=== PATIENT | female | born 1980 | race Two or more races ===

== ENCOUNTER 2019-01-31 07:17 | Inpatient (IN) | payer OTHER ==
[~2019-01-31] VITALS: Ht 149.9 cm; Wt 101.6 kg
[2019-01-31] VITALS (12 sets, daily range): BP systolic 109–145; BP diastolic 58–83
[~2019-01-31 07:17] MED LIST: NKM; ceFAZolin sod 2 GM in D5W 110 ML IVPB SCH
[2019-01-31] MEDS ORDERED: Propofol 200mg/20ml IV ONE ×2 (08:35→10:19)
[2019-01-31] MEDS ORDERED: Lidocaine 1% MPF 10mg/ml 5ml ONE (08:35)
[2019-01-31] MEDS ORDERED: Midazolam 2mg/2ml Inj ONE (08:35)
[2019-01-31] MEDS ORDERED: fentaNYL 100 mcg/2 mL IV ONE (08:35)
--- NOTE | 2019-01-31 08:59 | Anethesia Preoperative Eval ---
Anesthesia Pre-op PMH/ROS General Date of Evaluation: Jan 31, 2019 Time of Evaluation: 08:57 Anesthesiologist: Jasmin Madison CRNA ASA Score: ASA 2 Mallampati Score Class I : Soft palate, uvula, fauces, pillars visible Class II: Soft palate, uvula, fauces visible Class III: Soft palate, base of uvula visible Class IV: Only hard plate visible Mallampati Classification: Class II Surgeon: John Diagnosis: Herniated nucleus pulposus, radiculopathy Surgical Procedure: Microdiscectomy L4-L5 Anesthesia History: none Family History: no anesthesia problems Allergies: Coded Allergies: No Known Allergies (Unverified , 01/31/19) Patient NPO?: Yes NPO Date: Jan 30, 2019 NPO Time: 2100 Past Medical History Cardiovascular: Denies: HTN, CAD, [place], valve dz, arrhythmia, other Pulmonary: Reports: other - snoring at night, denies ABY; Denies: asthma, COPD, ABY Gastrointestinal/Genitourinary: Denies: GERD, CRI, ESRD, other Neurologic/Psychiatric: Reports: other - migraines; Denies: dementia, CVA, depression/anxiety, TIA Endocrine: Denies: DM, hypothyroidism, steroids, other HEENT: Denies: cataract (L), cataract (R), glaucoma, [place] (L), [place] (R), other Hematology/Immune: Denies: anemia, DVT, bleeding disorder, other Musculoskeletal/Integumentary: Reports: other - herniated nucleus pulposis, radisculopathy, LEFT leg weakness and numbness; Denies: OA, RA, DJD, DDD, edema Other: obesity - Morbid obesity, BMI 45 Anesthesia Pre-op Phys. Exam Physician Exam Last Vital Signs Date Time Temp Pulse Resp B/P (MAP) Pulse Ox O2 Delivery O2 Flow Rate FiO2 01/31/19 07:58 Room Air 01/31/19 07:56 98.0 85 18 128/73 (91) 97 Constitutional: NAD Neurologic: CN 2-12 intact Cardiovascular: RRR, no M/R/G Respiratory: CTA Gastrointestinal: S/NT/ND Airway Exam Mallampati Score: Class II MO: full Neck: FROM TMD: > #FB ROM: full Teeth: intact Dentures: no upper, no lower Anesthesia Pre-op A/P Labs reviewed, see chart Urine Test Test 3/8/19 07:30 Urine HCG, Qualitative Negative (NEGATIVE) Studies Pre-op Studies: EKG - Sinus rhythm, CXR - no acute cardiopulmonary disease, PFTS - WNL Risk Assessment & Plan Assessment: ASA 2, ok to proceed Plan: GETA Status Change Before Surgery: No Pre-Antibiotics Drug: Jasmin Soriano CRNA Jan 31, 2019 08:58
[2019-01-31] MEDS ORDERED: Thrombin 5000 units TOPIC ONE (09:21)
[2019-01-31] MEDS ORDERED: Vancomycin 1gm vial IVPB ONE (09:21)
[2019-01-31] MEDS ORDERED: Bacitracin 50000 Units Vial ONE (09:22)
[2019-01-31] MEDS ORDERED: Gelfoam Size TOPIC ONE (09:22)
[2019-01-31] MEDS ORDERED: Bupivacaine w/Epi 0.5% 30ml Vial INJ ONE (09:23)
[2019-01-31] MEDS ORDERED: Zemuron 50mg/5ml Inj IV ONE (09:54)
[2019-01-31] MEDS ORDERED: Propofol 1,000mg/ 100ml btl IV ONE (10:30)
[2019-01-31] MEDS ORDERED: NS Irrig 1000ml ONE (10:30)
[2019-01-31] MEDS ORDERED: Sterile Water Irrig 1000ml IRRIG ONE (10:30)
[2019-01-31] MEDS ORDERED: LR 1000ml ONE (10:30)
--- NOTE | 2019-01-31 10:37 | Pre-Procedure Note/Attestation ---
Pre-Procedure Note/Attestation Complete Prior to Procedure Planned Procedure: left Procedure Narrative: Lumbar 45 microdiscectomy (based on radiology report L5S1) Indications for Procedure Pre-Operative Diagnosis: Lumbar 45 hnp hiz tear (based on radiology report L5S1), I refer to it as L45 because there is an additional mobile L5S1 disc I note in the MRI Attestation I attest that I discussed the nature of the procedure; its benefits; risks and complications; and alternatives (and the risks and benefits of such alternatives ), prior to the procedure, with the patient (or the patient's legal senior account representative). I attest that, if there was a reasonable possibility of needing a blood transfusion, the patient (or the patient's legal senior account representative) was given the [place] [employer] [facility] standardized written summary, pursuant to the [place] Blood Safety Act ([place] Health and Safety Code # 1645, as amended). I attest that I re-evaluated the patient just prior to the surgery and that there has been no change in the patient's H&P, except as documented below: Isauro Lopez MD Jan 31, 2019 10:37
--- NOTE | 2019-01-31 10:38 | Brief Operative Note ---
Immediate Post Operative Note Operative Note Chief Complaint: lumbar back pain and radiculopathy Pre-op Diagnosis: Lumbar 45 hnp hiz tear (based on radiology report L5S1), I refer to it as L45 because there is an additional mobile L5S1 disc I note in the MRI Procedure: Lumbar 45 microdiscectomy (based on radiology report L5S1) Post-op Diagnosis: same as pre-op Findings: consistent w/pre-op dx studies Surgeon: John [employer] Instrument [employer] Tool Maker: Rhea Anesthesia: general Specimen: none Complications: none Condition: stable Fluids: IVF Estimated Blood Loss: minimal Drains: none Implant(s) used?: No Isauro Lopez MD Jan 31, 2019 10:38
[2019-01-31] MEDS ORDERED: Lidocaine 1% Plain 30 ml INJ ONE (10:39)
[2019-01-31] MEDS ORDERED: HYDROcodone/Acetamin 5/325 tab ORAL PRN (10:45)
[2019-01-31] MEDS ORDERED: HYDROcodone/Acetamin 7.5/325 tab ORAL PRN ×2 (10:45)
[2019-01-31] MEDS ORDERED: Metoclopramide 10mg/2ml Inj IVP PRN ×2 (10:45→12:00)
[2019-01-31] MEDS ORDERED: Chloraseptic Spray 20mL Bottle ORAL PRN (10:45)
[2019-01-31] MEDS ORDERED: Morphine Sulfate 2mg/ml Inj(IV/IM USE ONLY) IV PRN (10:45)
[2019-01-31] MEDS ORDERED: Milk of Magnesia 30ml Ud ORAL PRN (10:45)
[2019-01-31] MEDS ORDERED: Naloxone 0.4mg/ml Inj IVP PRN (10:45)
[2019-01-31] MEDS ORDERED: Morphine Sulfate 4mg/ml Inj (IV USE ONLY) IV PRN ×2 (10:45)
[2019-01-31] MEDS ORDERED: HYDROmorphone 1mg/ml Carpuject IVP PRN (10:45)
[2019-01-31] MEDS ORDERED: Morphine Sulfate 10mg/ml Inj ONE (11:24)
[2019-01-31] MEDS ORDERED: Ropivacaine 5mg/ml Vial 30ml INJ ONE ×2 (11:27→11:48)
[2019-01-31] MEDS ORDERED: Neostigmine 1mg/ml 10ml Inj ONE (11:50)
[2019-01-31] MEDS ORDERED: Glycopyrrolate 0.2mg/ml 1ml Vial ONE (11:50)
[2019-01-31] MEDS ORDERED: Ketorolac 30mg Inj IV PRN (12:00)
[2019-01-31] MEDS ORDERED: Hydromorphone 0.5mg/0.5ml inj IVP PRN (12:00)
--- NOTE | 2019-01-31 13:03 | Immediate Post-Op Evaluation ---
Immediate Post-Op Evalulation Immediate Post-Op Evalulation Procedure: Microdiscectomy L4-L5 Date of Evaluation: Jan 31, 2019 Time of Evaluation: 12:52 IV Fluids: LR 1200ml Estimated Blood Loss: 50 ml Blood Pressure Systolic: 145 Blood Pressure Diastolic: 83 Pulse Rate: 91 Respiratory Rate: 16 O2 Sat by Pulse Oximetry: 99 Temperature (Fahrenheit): 98.8 Pain Score (1-10): 2 Nausea: No Vomiting: No Complications none Patient Status: awake, reacts, patent, extubated Hydration Status: adequate Drug: cefazolin 2000mg IV Given Within 1 Hr of Incision: Yes Time Given: 10:45 Jasmin Madison CRNA Jan 31, 2019 13:03
--- NOTE | 2019-01-31 13:29 | NUR ---
CASE MANAGEMENT:REVIEW 38 YR OLD FEMALE HERE FOR ELECTIVE SURGERY SI: LUMBAR BACK PAIN AND RADICULOPATHY 98.0 85 18 128/73 97% ON RA IS: TO SURGERY FOR: LUMBAR MICRODISCECTOMY IV ANCEF Q8HRS IV DECADRON Q6HRS IVF@100/HR : MED/SURG STATUS 3 EAST INTERQUAL CRITERIA MET
--- NOTE | 2019-01-31 15:30 | NUR ---
NURSE NOTES: Pt received in stable condition s/p procedure to lumbar region. Site closed with dermabound. Pt has sensation in all extremities,lung fabian clear, bowel sounds present. Bladder nondistended soft to palpation. Neuro check rendered. Answering questions appropriately. Able to to follow commands . Bilateral hand log tumbler are firm, lower extremities with left foot, strength 4/5, and rt foot 5/5. All lower extremity pulses palpable, and normal. No presence of edema to lower extremities. Informed of safety precautions in regards to toileting. Call light is in reach
--- NOTE | 2019-01-31 16:31 | 48 Hour Post Anesthesia Eval ---
Post Anesthesia Evaluation Procedure: Microdiscectomy L4-L5 Date of Evaluation: Jan 31, 2019 Time of Evaluation: 14:02 Blood Pressure Systolic: 121 0: 69 Pulse Rate: 72 Respiratory Rate: 16 Temperature (Fahrenheit): 97.6 O2 Sat by Pulse Oximetry: 99 Airway: patent Nausea: No Vomiting: No Pain Intensity: 3 Hydration Status: adequate Cardiopulmonary Status: Stable Mental Status/LOC: patient returned to baseline Follow-up Care/Observations: 0 Post-Anesthesia Complications: 0 Follow-up care needed: N/A Jeff Bowie MD Jan 31, 2019 16:31
--- NOTE | 2019-01-31 16:53 | Diagnostic Imaging Report ---
INDICATION: Pain, intraoperative TECHNIQUE: Intraoperative imaging Fluoroscopy time: 24.9 seconds Total dose: 0.03967 mGym2 Total number of images: 3 COMPARISON: None FINDINGS: Intraoperative images document needles overlying the L4-5 disc and S1. Subsequent images demonstrate surgical tool posterior to what is presumably L4-5 IMPRESSION: Intraoperative imaging, as described
--- NOTE | 2019-01-31 17:40 | NUR ---
NURSE NOTES: Pt ambulated to restroom. Provided with Morphine 4 mg for complaints of pain to lower back. Tolerated pain medication well. Respirations stable at 16 and normal upon assessment.
[2019-01-31] MEDS ORDERED: Docusate 100mg cap ORAL SCH (18:00)
[2019-01-31] MEDS: Dexamethasone 4mg/ml vial IVP SCH (18:36)
[2019-01-31] MEDS: NS w/KCl 20mEq 1,000 ML IV SCH (18:36)
[2019-01-31] MEDS: Docusate Sod/Senna tab ORAL SCH (18:36)
--- NOTE | 2019-01-31 19:15 | NUR ---
NURSE NOTES: Report received from KANDY Becerra. Patient alert, oriented. Bed in low position, locked, side rails up x2. Call light within reach, no pain at this time. Icepack to lumbar area, Dermabond intact. Repositioned for comfort.
--- NOTE | 2019-01-31 19:35 | NUR ---
HAND-OFF: Report given to Linda GAITAN.
[2019-01-31] MEDS: ceFAZolin sod 1 GM in D5W 55 ML IV SCH (19:45)
[2019-02-01] VITALS: BP 111/64
[2019-02-01] MEDS: Dexamethasone 4mg/ml vial IVP SCH ×3 (00:14→13:14)
--- NOTE | 2019-02-01 01:01 | Operative Note - Dictated ---
DATE OF OPERATION: 01/31/2019 SURGEON: Isauro Lopez MD, Orthopaedic Spine Surgeon. CODE ENFORCEMENT INSPECTOR: GIO Boland. ANESTHESIA: General endotracheal anesthesia. PREOPERATIVE DIAGNOSES: 1. Intractable back pain. 2. Intractable leg pain. 3. Worsening radiculopathy. 4. Weakness. 5. Herniated nucleus pulposus, L4-L5 herniation. 6. Neural foraminal stenosis, L4-L5. POSTOPERATIVE DIAGNOSES: 1. Intractable back pain. 2. Intractable leg pain. 3. Worsening radiculopathy. 4. Weakness. 5. Herniated nucleus pulposus, L4-L5 herniation. 6. Neural foraminal stenosis, L4-L5. PROCEDURES PERFORMED: 1. Left-sided L4-L5 microdiscectomy. 2. L4-L5 hemilaminotomy, foraminotomy, and medial facetectomy. 3. L4-L5 neural foraminotomy 4. Use of intraoperative microscope. 5. Supervision and interpretation of intraoperative fluoroscopy. 6. Supervision and interpretation of somatosensory-evoked potential and free-running EMG monitoring. ESTIMATED BLOOD LOSS: Less than 100 mL. COMPLICATIONS: None. INDICATIONS FOR THE PROCEDURE: The patient presents for intractable back pain and radiculopathy. The patient tried and failed a prolonged course of conservative management, including but not limited to chiropractic therapy, physical therapy, nonsteroidal anti-inflammatory drugs, medication, ice packs as well as epidural injection. Despite these therapies, the patient still developed recalcitrant pain and elected for definitive management in the form of left-sided L4-L5 microdiscectomy, L4-L5 hemilaminotomy, foraminotomy, and medial facetectomy, and L4-L5 neural foraminotomy . CONSENT: We had a long discussion with the patient regarding definitive surgical treatment options. The patient's MRI demonstrated herniated nucleus pulposus, L4-L5 herniation and neural foraminal stenosis, L4-L5, and as a result, I felt the patient would benefit from the discectomy as well as neural foraminotomy at this level. We had a long discussion with the patient regarding the risks, alternatives, and benefits of surgery. Our description of the risks included a discussion in person as well as a signed consent which detailed all pertinent risks and the procedure itself. Briefly, our discussion included but was not limited to infection, bleeding, pseudarthrosis, spinal cord injury, neurovascular injury, dural tear, CSF leak, neuropathy, paralysis, permanent weakness/drop foot, paresthesias blindness, palsy, and weakness. The patient understood there may be a need for revision surgery or additional procedures. Approach-related complications including dysphonia, dysphagia, blindness, permanent vocal cord and neural injury, hematoma, swallowing and breathing difficulty. Medical complications including liver, kidney, shock, and cardiopulmonary failure. Anesthesia complications including , swelling. Damage to the musculature, larynx (voice injury or loss),esophagus (throat), trachea, blood vessels and muscles (muscular sprain) and lungs (pneumothorax) during this surgical procedure. Injury to deeper structures may be temporary or permanent. The patient understood these and elected to proceed. A written and verbal consent was given. We discussed the pros and cons of all the alternatives. We discussed the uncertainties associated with the decision. Afterwards I assessed the patient'ss understanding and explored their preferences. All questions were answered and no guarantees were given. Medical clearance was obtained prior to surgery INTRAOPERATIVE FINDINGS: At L5-S1, there was a mobile-appearing disk and so I am referring to this at L5-S1 and therefore, the herniation is at L4-L5. The radiologist referred to the herniation at L5-S1. I documented with the patient and in this operative note prior to surgery that what the radiologist is referring to as L5-S1, I am referring to as it is L4-L5. At L4-L5, after our laminotomy was performed, we encountered a broad-based disc herniation through a tear through the posterior longitudinal ligament which had nuclear fragments which had migrated through the PLL encroaching the neural foramina therein, all on the left side which corroborated with the patient's symptoms and findings. This was carefully resected and the disc was found to be acute in nature and not calcified. DESCRIPTION OF PROCEDURE: Under the benefit of general endotracheal anesthesia and with the assistance of the entire operative team, the patient was moved from the [facility] onto the operative table in the prone position on a Darryn frame. The head was secured and positioned appropriately. Bilateral arms were secured with Gel Pads and foam and all bony prominences were padded. The bilateral lower extremity SCD and ANTON hose were placed for DVT prophylaxis. A surgical timeout was called which corroborated our planned procedure. Preoperative antibiotics were administered within 30 minutes of the incision for prophylaxis. Decadron was given for preoperative steroids. Using lateral radiography, the operative levels were delineated. An incision was marked based on our interpretation of lateral radiography and afterwards the body was prepped and draped in the usual sterile manner. The family was notified that we were ready to commence surgery and were called in the waiting room hourly for updates. An incision was based on our lateral fluoroscopic image to center the incision at the L4-5 interspace. The wound was prepped and draped in the usual sterile fashion. Using a scalpel, a midline incision was taken down through the skin and subcutaneous tissues until the overlying hemilaminae of L4-L5 were visualized. Next, using meticulous hemostasis, hemilamotomies were dissected and retractors were placed. Using a Leila dental, we confirmed placement at the L4-L5 interspace. We next turned our attention to our decompression. A standard hemilaminotomy, foraminotomy, medial facetectomy was performed at each level in standard fashion using a Midas-Mann type AM8 drill bit, straight and angled curettage, and [place] 4 rongeurs until the lateral thecal sac margin and traversing nerve root was visualized. All remainders of the ligamentum flavum and lateral bony margins were resected in total with angled curettage and [place] 4 rongeurs until the lateral thecal sac margin and traversing nerve root was visualized and decompressed. We next turned our attention toward our L4-L5 microdiscectomy on the left side. A [place] 4 was used to gently mobilize the thecal sac medially and this was held retracted with a bayonetted nerve root retractor. It was at this point that we noted a large broad-based disc protrusion with encroachment dorsally on the thecal sac neural foraminal contents. A bayonet and nerve root retractor was then placed carefully to retract the thecal sac and a discectomy was performed using a combination of a long handled 15 blade scalpel, downgoing and straight pituitaries, and downgoing curettage. Afterward the disc space was irrigated twice with 20 mL of antibiotic-impregnated saline. All loose and free-floating disc fragments were carefully resected with a narrow pituitary. Having been satisfied with our decompression after our discectomy of all neural elements, we next turned our attention to our neural foraminoplasty/foraminotomy. This was performed with the use of kerrison rongeurs and pituitaries. Afterwards, hemostasis was obtained with 60 mL of antibiotic-impregnated saline followed by FloSeal and Gelfoam. After sponge and needle count were found to be correct, we next turned our attention to closure. Closure consisted of 1-0 Vicryl in standard interrupted fashion. Zosyn was placed deep to the fascia and superficial to the fascia for antibiotic prophylaxis. Skin closure was performed with 2-0 Vicryl in interrupted fashion followed by a running Monocryl for the skin. Final dressings consisted of Dermabond for the superficial skin, Telfa, and Tegaderm. The patient tolerated the procedure well. The patient was extubated after the conclusion of surgery without incident. We discussed the findings of the surgery with the family upon completion of the case. At this point, the patient will be transferred to the spine floor for further observation. Isauro Lopez M.D. DR: Jarred JOB#: [id number] CC: MICHAEL
[2019-02-01] MEDS: NS w/KCl 20mEq 1,000 ML IV SCH ×2 (02:00→05:54)
[2019-02-01] MEDS: ceFAZolin sod 1 GM in D5W 55 ML IV SCH ×2 (03:06→13:13)
[2019-02-01 04:00] VITALS: BP 111/65
--- NOTE | 2019-02-01 07:35 | NUR ---
NURSE NOTES: Received patient on bed, awake. IV sites intact and patent. Bed in low and locked position, call light in reach. No signs of respiratory distress or pain. Dressing dry and intact. Room board updated, will continue to monitor.
--- NOTE | 2019-02-01 07:36 | NUR ---
HAND-OFF: Report given to KANDY Aguilar. Pt in stable condition.
[2019-02-01 08:00] VITALS: BP 129/82
[2019-02-01] MEDS: Docusate Sod/Senna tab ORAL SCH (08:50)
[2019-02-01] MEDS ORDERED: Dexamethasone 4mg/ml vial ONE (10:30)
[2019-02-01 12:00] VITALS: BP 148/94
[2019-02-01 16:00] VITALS: BP 125/73
--- NOTE | 2019-02-01 16:16 | Discharge Summary ---
DATE OF ADMISSION: 01/31/2019 DATE OF DISCHARGE: 02/01/2019 PROCEDURE PERFORMED DURING ADMISSION: Lumbar L4-L5 microdiskectomy. REASON FOR ADMISSION: Lumbar L4-L5 herniation. HOSPITAL COURSE/TREATMENT RENDERED: As below. DISCHARGE PHYSICAL EXAMINATION: 1. The patient was ambulating with and without the assistance of physical therapy. 2. Prior to discharge home, incision was clean and dry with minimal swelling. 3. Follows commands. 4. Alert and oriented. 5. Murray discontinued, voiding. 6. Incentive spirometer at bedside. 7. IVF hep-locked. MOTOR: Demonstrates expected postoperative bulk and tone. Moves biceps, triceps, and deltoid musculature on command. Moves hip flexors, quadriceps, tibialis anterior, EHL, gastrocsoleus musculature on command as well. TREATMENT RENDERED: 1. Daily nursing care. 2. Physical therapy. 3. Occupational therapy. 4. Intravenous medications. 5. Oral medications. 6. Daily postoperative examinations by Spine Surgery team. CONDITION OF PATIENT ON DISCHARGE: The condition on discharge is stable for discharge to home. DISCHARGE INSTRUCTIONS: Our specific instructions relating to physical activity, medications, diet, and follow-up care are detailed in our standard operative folder and were given to this patient prior to surgery. We will however summarize these briefly as stated below. Regarding physical activity, we would like the patient to limit their flexion, extension, and rotation. We also require a limitation on their bending lifting and twisting. All medication has been called in prior to surgery to their pharmacy of choice. They can resume their regular diet once tolerated. We would like them to shower and limit soaking the wound in a tub/Jacuzzi/the ocean for a period of one month or until the incision is completely healed. We will have them follow up in our office in three weeks' time for their regularly scheduled appointment. They understand to call our office tomorrow to schedule the time for their three-week followup appointment. The patient will notify us should they experience any increase in the severity of pain, redness, swelling, or drainage from their incision. Isauro Lopez M.D. DR: MIGUEL/YOHAN JOB#: [id number] CC:
--- NOTE | 2019-02-01 16:22 | NUR ---
PT Note PT chary completed, treatment initiated. Patient needs physical therapy to instruct on proper body mechanics and proper log rolling techniques to improve safety in mobility. Addendum: 02/01/19 at 1623 by IDALIA PACHECO PT Amended: Links added.
--- NOTE | 2019-02-01 18:05 | NUR ---
NURSE NOTES: Patient is discharged. IV's removed and sites covered. ID band removed. Personal belongings inventoried and sent with patient. Patient needs met adn patient kept comfortable at all times. Patient departed in [employer] vehicle.
== END 2019-02-01 18:16 | disposition home or self-care (01) | DRG 520 ==
LOC: SDSOVERFLO 07:17 → 3E 15:34
DX: M51.16 Intervertebral disc disorders with radiculopathy, lumbar region (principal); M48.061 Spinal stenosis, lumbar region without neurogenic claudication; Z90.49 Acquired absence of other specified parts of digestive tract
CPT/HCPCS: 36415; 72020; 76000; 81025; 86850; 86900; 86901; 87081; 94003; 94150; C9399; J2250; J2405; J2710